=== PATIENT | male | born 1945 | race Two or more races ===

== ENCOUNTER 2023-12-05 20:06 | Inpatient (IN) | payer MEDICARE, MEDICAID ==
[~2023-12-05] VITALS: Ht 172.7 cm; Wt 78.7 kg
[2023-12-05 20:27] VITALS: PULSE 94; RESP 22; O2SAT 92
[2023-12-05] MEDS: SODIUM CHLORIDE 0.9% 1,000 ML IV ONE (20:51)
[2023-12-05 21:24] LABS: Basophils # (auto) 0 10 ^3/uL (0-0.2); Basophils % (auto) 0.2 % (0.0-2.0); Eosinophils # (auto) 0 10 ^3/uL (0-0.8); Eosinophils % (auto) 0.1 % (0.0-7.0); Hematocrit 44.3 % (41.0-53.0); Hemoglobin 15.4 g/dL (13.5-17.5); Lymphocytes # (auto) 1.2 10 ^3/uL (0.4-5.4); Mean Corpuscular Hemoglobin 29.6 pg (28.0-32.0); Mean Corpuscular Hgb Conc. 34.8 g/dL (32.0-36.0); Mean Corpuscular Volume 85.3 fL (80.0-100.0); Monocytes # (auto) 0.8 10 ^3/uL (0-1.3); Monocytes % (auto) 6.9 % (0.0-12.0); Neutrophils # (auto) 10.1 10 ^3/uL (1.6-8.6); Neutrophils % (auto) 82.8 % (37.0-80.0); Nucleated Red Blood Cells % 0.2 %; Platelet Count (auto) 215 10^3/uL (140-450); Red Blood Cells 5.19 10^6/uL (4.5-5.90); Red Cell Distribution Width 13.7 % (11.8-14.3); White Blood Cell 12.1 10^3/uL (4.4-10.8)
[2023-12-05 21:42] LABS: Alanine Aminotransferase 12 U/L (7-40); Albumin 3.5 g/dL (3.2-4.8); Alkaline Phosphatase 90 U/L (46-116); Anion Gap 8 (5-15); Aspartate Aminotransferase 21 U/L (13-40); BUN/Creatinine Ratio 23.3 (10.0-20.0); Blood Urea Nitrogen 30 mg/dL (9-23); Calcium 8.9 mg/dL (8.7-10.4); Carbon Dioxide 25 mmol/L (20-30); Chloride 101 mmol/L (98-107); Glucose 155 mg/dL (74-106); Sodium 134 mmol/L (136-145)
[2023-12-05 21:43] LABS: Bilirubin, Total 0.4 mg/dL (0.2-1.0)
[2023-12-06 00:52] LABS: COVID19 ANTIGEN SOFIA FIA NEGATIVE (NEGATIVE)
[2023-12-06] MEDS: metroNIDAZOLE 500MG/100ML 100 ML IV ONE (01:56)
[2023-12-06] MEDS: POTASSIUM EFFERVESENT TAB 25 MEQ GT ONE (01:59)
[2023-12-06] MEDS ORDERED: DOCUSATE SOD 100 MG CAP PO PRN (02:15)
[2023-12-06] MEDS ORDERED: ALBUTEROL SULF 2.5 MG/0.5ML(0.5%) NEB SOLN NEB PRN (02:15)
[2023-12-06] MEDS: SODIUM CHLORIDE 0.9% 1,000 ML IV SCH (02:15)
[2023-12-06] MEDS ORDERED: hydrALAZINE HCL 20 MG/ML VL IV PRN (02:15)
[2023-12-06] MEDS ORDERED: DEXTROSE (50%) 50ML SYRG IV PRN (02:15)
[2023-12-06 02:39] VITALS: BP 134/78; PULSE 87; RESP 22; O2SAT 97
[2023-12-06] MEDS: levoFLOXacin 500MG 100 ML IV ONE (03:13)
[2023-12-06] MEDS: HYDROcodone-ACET 5/325MG TAB PO PRN (03:21)
[2023-12-06 04:01] LABS: Basophils # (auto) 0 10 ^3/uL (0-0.2); Basophils % (auto) 0.1 % (0.0-2.0); Eosinophils # (auto) 0 10 ^3/uL (0-0.8); Eosinophils % (auto) 0.3 % (0.0-7.0); Hematocrit 45.1 % (41.0-53.0); Hemoglobin 15.5 g/dL (13.5-17.5); Lymphocytes # (auto) 0.9 10 ^3/uL (0.4-5.4); Lymphocytes % (auto) 8.6 % (10.0-50.0); Mean Corpuscular Hgb Conc. 34.3 g/dL (32.0-36.0); Mean Corpuscular Volume 87.2 fL (80.0-100.0); Monocytes # (auto) 0.7 10 ^3/uL (0-1.3); Monocytes % (auto) 6.2 % (0.0-12.0); Neutrophils # (auto) 9.3 10 ^3/uL (1.6-8.6); Neutrophils % (auto) 84.8 % (37.0-80.0); Platelet Count (auto) 218 10^3/uL (140-450); Red Blood Cells 5.16 10^6/uL (4.5-5.90); Red Cell Distribution Width 13.8 % (11.8-14.3); White Blood Cell 10.9 10^3/uL (4.4-10.8)
[2023-12-06 04:18] LABS: Albumin 3.3 g/dL (3.2-4.8); Alkaline Phosphatase 86 U/L (46-116); Anion Gap 11 (5-15); Aspartate Aminotransferase 20 U/L (13-40); BUN/Creatinine Ratio 19.8 (10.0-20.0); Bilirubin, Total 0.4 mg/dL (0.2-1.0); Blood Urea Nitrogen 24 mg/dL (9-23); Calcium 8.6 mg/dL (8.7-10.4); Carbon Dioxide 22 mmol/L (20-30); Chloride 102 mmol/L (98-107); Glucose 225 mg/dL (74-106); Sodium 135 mmol/L (136-145); Total Protein 5.7 g/dL (5.7-8.2)
[2023-12-06 04:22] LABS: Alanine Aminotransferase < 9 U/L (7-40)
[2023-12-06] MEDS: metroNIDAZOLE 500MG/100ML 100 ML IV SCH (05:38)
[2023-12-06] MEDS: ACCU-CHEK COMFORT CURVE STRIP VI SCH (06:45)
[2023-12-06] MEDS: InsuLIN REG 1unit/0.01ml Soln (100units/ml) SC SCH ×2 (06:46→22:29)
[2023-12-06 07:30] VITALS: PULSE 93; RESP 20; O2SAT 95
[2023-12-06] MEDS ORDERED: MORPHINE SULFATE INJ 2 MG/ml SYRG IV PRN (07:45)
[2023-12-06] MEDS ORDERED: NITROGLYCERIN 0.4 MG SL TAB SL PRN (07:45)
[2023-12-06] MEDS: cefTRIAXone 1GM/50ML D5W 50 ML IV SCH (09:12)
[2023-12-06] MEDS: CARVEDILOL 3.125 MG TAB PO SCH (10:00)
[2023-12-06 12:45] VITALS: O2SAT 95
[2023-12-06] MEDS: AZITHROMYCIN 500MG/ 250ML 250 ML IV ONE (14:25)
[2023-12-06 14:54] LABS: Urine Blood Negative /uL (Negative); Urine Clarity Clear (Clear); Urine Color Light-Yellow (Yellow); Urine Protein, UAD 1+ (Negative); Urine Specific Gravity 1.027 (1.001-1.035); Urine Urobilinogen Normal (Negative); Urine pH 5.5 (5.0-9.0)
[2023-12-06 19:20] VITALS: O2SAT 97
[2023-12-06 20:00] VITALS: PULSE 96; RESP 15; O2SAT 96
[2023-12-06] MEDS: ACETAMINOPHEN 325 MG TAB PO PRN (22:13)
[2023-12-07 03:47] LABS: Basophils # (auto) 0 10 ^3/uL (0-0.2); Basophils % (auto) 0.3 % (0.0-2.0); Eosinophils # (auto) 0.2 10 ^3/uL (0-0.8); Eosinophils % (auto) 2.3 % (0.0-7.0); Hematocrit 44.9 % (41.0-53.0); Hemoglobin 15.1 g/dL (13.5-17.5); Lymphocytes # (auto) 1.1 10 ^3/uL (0.4-5.4); Mean Corpuscular Hemoglobin 28.9 pg (28.0-32.0); Mean Corpuscular Hgb Conc. 33.6 g/dL (32.0-36.0); Mean Corpuscular Volume 85.9 fL (80.0-100.0); Monocytes # (auto) 0.6 10 ^3/uL (0-1.3); Monocytes % (auto) 8.3 % (0.0-12.0); Neutrophils # (auto) 5.7 10 ^3/uL (1.6-8.6); Neutrophils % (auto) 74.1 % (37.0-80.0); Nucleated Red Blood Cells % 0.2 %; Platelet Count (auto) 250 10^3/uL (140-450); Red Blood Cells 5.22 10^6/uL (4.5-5.90); White Blood Cell 7.7 10^3/uL (4.4-10.8)
[2023-12-07 04:08] LABS: Alanine Aminotransferase 11 U/L (7-40); Albumin 3.4 g/dL (3.2-4.8); Alkaline Phosphatase 73 U/L (46-116); Anion Gap 10 (5-15); Aspartate Aminotransferase 18 U/L (13-40); BUN/Creatinine Ratio 18.2 (10.0-20.0); Bilirubin, Total 0.3 mg/dL (0.2-1.0); Blood Urea Nitrogen 16 mg/dL (9-23); Calcium 8.3 mg/dL (8.7-10.4); Carbon Dioxide 25 mmol/L (20-30); Chloride 106 mmol/L (98-107); Potassium 3.3 mmol/L (3.5-5.1); Sodium 141 mmol/L (136-145); Total Protein 5.8 g/dL (5.7-8.2)
[2023-12-07 04:37] LABS: Glucose 107 mg/dL (74-106)
[2023-12-07 07:15] VITALS: PULSE 78; RESP 16; O2SAT 96
[2023-12-07] MEDS: ONDANSETRON HCL 4 MG/2 ML VIAL IV PRN (07:23)
[2023-12-07] MEDS: AZITHROMYCIN 500MG/ 250ML 250 ML IV SCH (10:06)
[2023-12-07 11:46] VITALS: O2SAT 96
[2023-12-07 19:30] VITALS: PULSE 90; RESP 17; O2SAT 91
[2023-12-07 21:20] VITALS: O2SAT 93
[2023-12-08 07:20] VITALS: PULSE 92; RESP 18; O2SAT 95
[2023-12-08] MEDS: LINEZOLID 600MG/300ML 300 ML IV SCH (12:10)
[2023-12-08 17:45] VITALS: PULSE 82; RESP 15; O2SAT 94
[2023-12-08] MEDS ORDERED: AMLO1TAB23 PO (18:09)
[2023-12-08] MEDS ORDERED: INSU100I4 SC (18:09)
[2023-12-08] MEDS ORDERED: CARV3.1240 PO (18:09)
[2023-12-08] MEDS ORDERED: LISI2.5T47 PO (18:09)
[2023-12-08] MEDS ORDERED: EMPA1TAB PO (18:09)
[2023-12-08] MEDS ORDERED: ALBU108A5 INH (18:10)
[2023-12-08 19:51] VITALS: O2SAT 94
[2023-12-08 20:55] VITALS: BP 155/87; PULSE 83; RESP 18; TEMP 97.9; O2SAT 96
[2023-12-09] VITALS (10 sets, daily range): BP systolic 135–154; BP diastolic 81–90; PULSE 81–95; RESP 15–20; TEMP 97.7–98.4; O2SAT 94–97
[2023-12-09] MEDS: levoFLOXacin 500MG 100 ML IV ONE (12:53)
[2023-12-10 01:00] VITALS: BP 138/76; PULSE 91; RESP 17; TEMP 98.3; O2SAT 94
[2023-12-10 05:12] VITALS: BP 129/72; PULSE 92; RESP 18; TEMP 98.3; O2SAT 95
[2023-12-10 07:03] VITALS: O2SAT 92
[2023-12-10 08:00] VITALS: PULSE 90; RESP 20; O2SAT 96
[2023-12-10 08:30] VITALS: BP 139/83; PULSE 90; RESP 20; TEMP 98.2; O2SAT 96
[2023-12-10] MEDS: levoFLOXacin 500MG 100 ML IV SCH (09:26)
[2023-12-10 12:40] VITALS: BP 127/74; PULSE 84; RESP 17; TEMP 99; O2SAT 97
== END 2023-12-10 15:12 | DRG 871 ==
LOC: EDBD 20:06 → ER 20:06 → TELE 12-06 07:39 → WEST WING 12-06 07:40 → TELE 12-08 15:23 → TELE-WESTW 12-08 17:36 → WEST WING 12-09 06:06
PROVIDERS: ADMIT Nurse Practitioner Family; ATTEND Family Medicine
DX: A41.50 Gram-negative sepsis, unspecified (principal); G93.41 Metabolic encephalopathy; J15.69 Pneumonia due to other Gram-negative bacteria; J15.9 Unspecified bacterial pneumonia; E46 Unspecified protein-calorie malnutrition; N39.0 Urinary tract infection, site not specified; K52.9 Noninfective gastroenteritis and colitis, unspecified; E11.65 Type 2 diabetes mellitus with hyperglycemia; E87.6 Hypokalemia; Z20.822 Contact with and (suspected) exposure to COVID-19; I10 Essential (primary) hypertension; F17.200 Nicotine dependence, unspecified, uncomplicated; B95.2 Enterococcus as the cause of diseases classified elsewhere; Z68.26 Body mass index [BMI] 26.0-26.9, adult
CPT/HCPCS: 36415; 70450; 70486; 74176; 80053; 81003; 82962; 85025; 87086; 87088; 87186; 87426; 93005; 96361; 96365; 97163; G0378; J1815; J1956; J2405; J3490